=== PATIENT | male | born 1940 | race Caucasian/White ===

== ENCOUNTER → 2017-02-02 | Outpatient (CLI) | payer MEDICARE, OTHER ==
--- NOTE | 2017-02-02 16:00 | KCIC ---
Examination: MRI of the left forefoot without contrast. HISTORY History of foot pain. COMPARISON None available. TECHNIQUE Multiplanar, multisequence MR imaging of the left forefoot was performed without contrast Findings : The alignment of the tarsometatarsal joints grossly appears unremarkable. There are erosive changes identified in the dorsal aspect of the 1st metatarsal and in the proximal portion of the first proximal phalanx at the metatarsophalangeal joint with surrounding intermediate T1 signal likely gout with tophus formation. There is some synovial prominence or tophi identified about 2nd and 3rd metatarsophalangeal joints.There is questionable minimal subluxed appearance of the proximal phalanx of the 2nd and 3rd toes in relation to the heads of the metatarsals. There is a marginal erosion identified in the medial aspect of the distal talus with focal intermediate T1 signal measuring 1.6 centimeters dorsal to the medial talus likely gouty erosion with tophus. The distal attachment of the peroneus longus tendon grossly appears intact. The visualized Lisfranc ligament grossly appears intact. Mild degenerative changes with subchondral cysts identified at the base of the 3rd metatarsal. IMPRESSION 1. 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 There is suspected tophus formation about the 2nd and 3rd MTP joints with possible minimal medial subluxed appearance of the proximal phalanx of the 2nd and 3rd toes in relation to the metatarsal heads. Electronically signed by: Carlos Callejas (Feb 02, 2017 15:59:03)
== END | disposition home or self-care (01) ==
LOC: KCIC MRI 14:18
PROVIDERS: ATTEND Family Medicine
DX: M79.672 Pain in left foot (principal)
CPT/HCPCS: 73718

== ENCOUNTER → 2017-04-21 | Day surgery (SDC) | payer MEDICARE, OTHER ==
[~2017-04-21] MED LIST: ATOR20TA58 PO; CITA20TA5 PO; IV RINGERS,LACTATED 1000ML 1,000 ML IV SCH; LANS15CA66 PO; PROPOFOL 40 ML IV ONE; TRAZ50TA15 PO
[2017-04-21 09:26] VITALS: BP 119/64
--- NOTE | 2017-04-21 10:33 | HP ---
ADMIT DATE: 04/21/2017 HISTORY OF PRESENT ILLNESS: This is a 77-year-old male with past medical history significant for diverticulosis, hemorrhoids, hyperlipidemia, history of colonic polyps and reflux is seen for interval colonoscopy. Bowel habits have been regular without diarrhea or constipation. Family history is unrevealing for colon polyps or colon cancer. Weight and appetite are good. He is without additional complaints. PAST MEDICAL HISTORY: Hyperlipidemia, history of colonic polyps, gastroesophageal reflux disease. ALLERGIES: None. MEDICATIONS: Include atorvastatin, citalopram, Prevacid and trazodone. FAMILY AND SOCIAL HISTORY: Nonsmoker, nondrinker. PAST SURGICAL HISTORY: Noncontributory. REVIEW OF SYSTEMS: Per records. PHYSICAL EXAMINATION: GENERAL: Reveals a well-nourished, well-developed male. VITAL SIGNS: Temperature is 98.1, pulse 74, respiratory rate is 16. HEENT: Normocephalic, atraumatic. Pupils and extraocular muscles not tested. Sclerae anicteric. NECK: Supple. LUNGS: Clear. CARDIOVASCULAR: Reveals an S1, S2 without S3, S4 or appreciable murmur. ABDOMEN: Soft abdomen, normal bowel sounds, without appreciable hepatosplenomegaly. EXTREMITIES: Reveals no cyanosis, clubbing or edema. IMPRESSION: History of colonic polyps. Surveillance exam is recommended at this time. Risks and benefits have been previously discussed with the patient including risk of hemorrhage and perforation. He is willing to proceed at this time. BOBBY LANDERS MD DR: NAVDEEP/cecelia JOB#: [id number] / [id number]
== END | disposition home or self-care (01) ==
LOC: SURG 07:13
PROVIDERS: ATTEND Internal Medicine Gastroenterology
DX: Z09 Encounter for follow-up examination after completed treatment for conditions other than malignant neoplasm (principal); Z86.010 Personal history of colon polyps; K64.0 First degree hemorrhoids; K57.30 Diverticulosis of large intestine without perforation or abscess without bleeding; E78.00 Pure hypercholesterolemia, unspecified; F32.9 Major depressive disorder, single episode, unspecified
CPT/HCPCS: 45378; J2704

== ENCOUNTER → 2020-05-18 | Outpatient (CLI) | payer MEDICARE, OTHER ==
[2017-04-21 09:26] VITALS: BP 119/64
[~2020-05-18] MED LIST changes: -CITA20TA5 PO; +CITA20TA6 PO; +INDO25CA21 PO; -IV RINGERS,LACTATED 1000ML 1,000 ML IV SCH; -LANS15CA66 PO; +LANS15CA78 PO; +METF500T16 PO; -PROPOFOL 40 ML IV ONE; +TRAZ-118 PO; -TRAZ50TA15 PO
[2020-05-18 09:23] LABS: BASO # 0.1 x10^3/uL (0.0-0.2); BASO % 1 % (0-3); EOS # 0.2 x10^3/uL (0.0-0.7); EOS % 4 % (0-3); HEMATOCRIT 43.4 % (39.0-53.0); HEMOGLOBIN 14.8 g/dL (13.0-17.5); LYMPH # 2.1 x10^3/uL (1.0-4.8); LYMPH % 37 % (24-48); MEAN CORPUSCULAR HEMOGLOBIN 33 pg (25-35); MEAN CORPUSCULAR HGB CONC 34 g/dL (31-37); MEAN CORPUSCULAR VOLUME 95 fL (79-100); MONO # 0.6 x10^3/uL (0.0-1.1); MONO % 10 % (0-9); NEUT # 2.8 x10^3/uL (1.8-7.7); NEUT % 49 % (31-73); PLATELET COUNT 222 x10^3/uL (140-400); RED BLOOD COUNT 4.56 x10^6/uL (4.30-5.70); RED CELL DISTRIBUTION WIDTH 13.3 % (11.5-14.5); WHITE BLOOD COUNT 5.8 x10^3/uL (4.0-11.0)
[2020-05-18 09:34] LABS: ALBUMIN 3.9 g/dL (3.4-5.0); C-REACTIVE PROTEIN 1.9 mg/L (0-3.3); CALCIUM 9.3 mg/dL (8.5-10.1); GFR 72.3; POTASSIUM 4.1 mmol/L (3.5-5.1)
[2020-05-18 09:41] LABS: PROTHROMBIN TIME PATIENT 12.3 SEC (11.7-14.0)
--- NOTE | 2020-05-18 13:03 | RAD ---
CHEST PA LATERAL History: Reason: joint prehab class-hx hypertension-preop eval / Comparison: None. Findings: There is mildly tortuous thoracic aorta. Cardiac size is normal. Pulmonary vasculature is normal. The lungs are clear. No pleural effusion or pneumothorax is seen. There is no acute bone abnormality. There is degenerative endplate spurring of the thoracic spine. IMPRESSION: No acute cardiopulmonary process. Electronically signed by: Arnel Sewell MD (05/18/2020 1:00 PM) [id number]
--- NOTE | 2020-05-18 14:49 | EKG ---
[facility] [address] [place] [address] Test Date: 2020-05-18 Test Time: 11:25:29 Pat Name: PARIS TONY Department: Room: Gender: M Bingo Checker: [facility] : 1940 Requested By: ALETHEA RUBIO Order Number: [id number] Reading MD: Nestor Redding MD Measurements Intervals Jamison Rate: 56 P: 39 MT: 162 QRS: -5 QRSD: 86 T: 31 QT: 446 QTc: 433 Interpretive Statements SINUS RHYTHM Electronically Signed On 05-21-2020 16:36:55 CDT by Nestor Redding MD
[2020-05-19 01:08] LABS: HEMOGLOBIN A1C 5.7 % (4.8-5.6)
== END | disposition home or self-care (01) ==
LOC: SURGPAT 11:12
PROVIDERS: ATTEND Orthopaedic Surgery
DX: Z01.818 Encounter for other preprocedural examination (principal); M17.12 Unilateral primary osteoarthritis, left knee; I10 Essential (primary) hypertension
CPT/HCPCS: 36415; 71046; 80048; 82040; 82306; 83036; 85025; 85610; 85730; 86140; 87641; 93005

== ENCOUNTER → 2020-05-27 | Outpatient (CLI) | payer MEDICARE, OTHER ==
[2017-04-21 09:26] VITALS: BP 119/64
== END | disposition home or self-care (01) ==
LOC: LAB 13:12
PROVIDERS: ATTEND Orthopaedic Surgery
DX: Z01.818 Encounter for other preprocedural examination (principal); Z11.59 Encounter for screening for other viral diseases; M17.12 Unilateral primary osteoarthritis, left knee; Z91.09 Other allergy status, other than to drugs and biological substances
CPT/HCPCS: U0003-CS

== ENCOUNTER 2020-06-02 05:46 | Inpatient (IN) | payer MEDICARE, OTHER ==
[~2020-06-02] VITALS: Ht 180.3 cm; Wt 80.7 kg
[2020-06-02] VITALS (9 sets, daily range): BP systolic 114–139; BP diastolic 56–66
[2020-06-02] MEDS ORDERED: TRANEXAMIC ACID 1,000 MG in IV NORMAL SALINE 50ML 50 ML INJ ONE ×2 (06:00→08:00)
[2020-06-02] MEDS ORDERED: CELECOXIB 100 MG CAPSULE. PO PRN (06:00)
[2020-06-02] MEDS ORDERED: MORPHINE SULFATE 5 MG, KETOROLAC 30MG VIAL 30 MG, ROPIVacaine 0.5% PF 60 ML, EPINEPHrin... INT ART ONE (06:00)
[2020-06-02] MEDS ORDERED: PROPOFOL 10 MG/ML (20ML) VIAL. IV ONE (06:19)
[2020-06-02] MEDS ORDERED: LIDOCAINE 2% PF 5 ML VIAL. ONE (06:19)
[2020-06-02] MEDS ORDERED: ONDANSETRON PF 4 MG/2 ML VIAL. ONE (06:19)
[2020-06-02] MEDS ORDERED: DEXAMETHASONE SOD PHOS 4 MG/ML VIAL ONE (06:19)
[2020-06-02] MEDS ORDERED: VANCOMYCIN 1 GM VIAL. ONE ×2 (06:37)
[2020-06-02] MEDS ORDERED: TOBRAMYCIN POWDER 1.2 GM VIAL. ONE (06:37)
[2020-06-02] MEDS ORDERED: fentaNYL PF VIAL 100 MCG/2 ML VIAL ONE ×3 (06:50→10:35)
[2020-06-02] MEDS ORDERED: ACETAMINOPHEN 500 MG TABLET PO ONE ×2 (06:58→07:15)
[2020-06-02] MEDS ORDERED: PROCHLORPERAZINE 10 MG/2 ML VIAL. IV PRN ×2 (07:00→10:45)
[2020-06-02] MEDS ORDERED: IV RINGERS,LACTATED 1000ML 1,000 ML IV SCH ×2 (07:00→10:43)
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
[2020-06-02] MEDS ORDERED: GLYCOPYRROLATE 1 MG/5 ML VIAL. ONE (08:16)
[2020-06-02] MEDS ORDERED: PHENYLEPHRINE in 0.9% NACL PF 1 MG/10 ML SYRINGE. IV ONE (10:17)
--- NOTE | 2020-06-02 10:34 | PDOC4 ---
Operative Note Operative Note Date of Procedure: June 02, 2020 Pre-Op Diagnosis: Unilateral primary osteoarthritis, left knee. M17.12 Post-Op Diagnosis: same Procedure: left total knee arthroplasty with patella resurfacing, robotic assisted, CPT 49443 Surgeon: Alethea Avilez MD Commercial Marketing Specialist: PEDRO Jones Anesthesia: General EBL: 200 mL Specimens Obtained: left knee bone and soft tissue Complications: none Drains: Hemovac plus pain catheter Tourniquet time: 80 Minutes Tourniquet Pressure: 300 mm Hg Indications for Procedure: Knee arthritis pain, affecting quality of life, unrelieved by nonoperative management Findings: Severe osteoarthritis with bone on bone contact in all three compartments, some chondrocalcinosis, eburnated bone and bone loss of the medial tibia, severe flexion contracture preoperatively and significant varus alignment preoperatively Implants: Hernandez & Nephew Journey II Total Knee System, Size 7 left bicruciate stabilized Journey II BCS cobalt chrome femoral component, size 6 left Journey nonporous tibial baseplate, size 5-6 10 mm left Journey II BCS constrained articular insert, 35 mm oval Jess II resurfacing patellar component Procedure in Detail: The patient was identified in the preoperative holding area, and the correct left lower extremity was marked by me. The patient was taken to the operating room where the patient was anesthetized by the Department of Anesthesia. Preoperative antibiotics were given intravenously. Tranexamic acid 1 g was given intravenously for intraoperative hemostasis. A "time-out" procedure was p erformed. The patient was positioned supine on the operative table with a tourniquet on the upper left thigh. A left hip bump and heel bump were attached to the operating table for later intraoperative positioning. The left lower limb was thoroughly scrubbed, then sterile Chloraprep solution was applied, and the limb was draped in sterile fashion. The operating team wore exhaust ventilated hoods with [employer] Personal Protection Toga Zippered Peel-Away protection system. An impervious stockinet and an adhesive drape were used such that the skin was entirely covered. The limb was exsanguinated with an Esmarch bandage, and the tourniquet was inflated. A midline skin incision was made with a scalpel using the patella and tibial tubercle as landmarks. Electrocautery was used for hemostasis. My assistant family teacher used rake retractors and a laparotomy sponge. A medial parapatellar arthrotomy incision was used with extension into the distal quadriceps tendon. The patella was retracted laterally and Hohmann retractors were now used by my assistant family teacher. Excess synovium, the menisci, and the cruciate ligaments were resected sharply. A periarticular multimodal ropivacaine anesthetic injection was used in the suprapatellar pouch and distal quadriceps muscle. The patella was everted and exposed. The patella thickness was measured with a caliper, and then cut freehand with a saw, using caliper measurements to assess the resection. The lateral retinaculum was partially released from the lateral patella using electrocautery. Rongeurs were used to make sure there were no remaining exposed patellar osteophytes medially or laterally. The patella was sized, and then drilled for an oval three-peg patella component. The tibial tracker array for the NAVIO system was applied to the tibial crest four finger breadths below the tibial tubercle, using percutaneous incisions and bicortical pins. The femoral tracker array was applied outside of the original incision using two separate stab incisions using bicortical pins. Checkpoint verification pins were applied to the femur and tibia. Using the point probe, the medial and lateral malleoli were localized and the locations were stored. The center of the tibia was noted at the anterior cruciate ligament insertion and stored. The center of the femur was marked at the intersection of Whitesidess line with the transepicondylar axis. The hip center calculation was performed with range of motion of the hip. The femur neutral position was identified, and simulated weightbearing was performed with axial compression on the foot. Range of motion without stress was performed and the data collected. Range of motion with valgus stress, and range of motion with varus stress data collection was also performed. Rotational references include the Whitesidess line, and the trans-epicondylar axis. The femoral articular surface was now mapped in 3 dimensions using the point probe and digital data collected. The tibial condyle articular surfaces and cortical edges were mapped in 3 dimensions using the point probe including the medial and lateral tibial plateau. Implant planning was now performed on-screen with manipulation of the implant sizes, cut thicknesses and gaps, component rotation, component flexion/extension and component varus/valgus until satisfactory ligament balance, alignment and stability of the knee was expected throughout the range of motion. My assistant family teacher held a Hohmann retractor, a medial Z-retractor, and an [facility] retractor to protect the medial and lateral collateral ligaments, the patellar tendon, the skin and the other soft tissues. The point probe was used to confirm the location of the checkpoint verification pins. The distal femoral surface was now prepared using the Anspach finesse with footpedal, and the NAVIO handpiece for bone removal to the previously planned distal femoral resection. The crosshairs at the pin locations were marked by using a mallet and the point probe for definitive location. A 5-in-1 Journey II cutting guide was then applied and the position was checked with the virtual deo wing from the NAVIO to ensure proper placement as the pins were applied. The posterior, anterior, and all chamfer cuts were made with the oscillating saw. Excess bone was removed with an osteotome and rongeurs. The tibial cutting guide was applied, positioned using the NAVIO virtual deo wing, and secured to the upper tibia using three pins at the previously planned location. The virtual doe wing was used to confirm the resection depth, slope and coronal alignment. The upper tibia was cut made with an oscillating saw. My assistant family teacher held Hohmann retractors and a posterior cruciate ligament retractor to protect the medial and lateral collateral ligaments, the patellar tendon, the skin, the peroneal nerve and the other soft tissues. The upper tibia was sized with a trial baseplate. The posterior compartment was cleared of osteophytes and loose bodies. The periarticular anesthetic injection was used in the posterior compartment. The box cut for a posterior stabilized component was made. A preliminary reduction was performed with a trial femur, trial tibial baseplate and trial polyethylene. The NAVIO system was used to confirm range of motion, and postoperative stressed gap assessment. A medial release was required, using a 10 blade scalpel, and a Cortez elevator to elevate the medial structures from the upper medial tibia. The stability was assessed using different thicknesses of tibial articular surface to find satisfactory stability and good range of motion. The rotation of the tibial component was marked on the upper tibia. Final trial reduction was now performed verifying patella tracking and tibiofemoral stability and alignment. The bone pins and tracker arrays were removed, and the checkpoint verification pins were removed. The tibia preparation was completed with a drill, saw, and fin punch at the previously noted rotation. The final implants were verified and opened. Outer gloves were changed by the operating team. Betadine lavage was used. The bone cuts were irrigated with saline using the Banks InterPulse device and then dried with suction and laparotomy sponges. Two packages of Hernandez + Nephew Rally HV bone cement were mixed in powdered form with Vancomycin 1gm and Tobramycin 1.2 gm, and then vacuum-mixed with the monome r, and placed into a cement gun. The cut surfaces of the bone were thoroughly dried with suction and with laparotomy sponges for cement interdigitation. The final components were cemented into place. The knee was kept at full extension while the cement hardened, and excess cement was removed. Tranexamic acid 1 g was redosed intravenously for additional intraoperative hemostasis. The tourniquet was released, and electrocautery was used for hemostasis. A final periarticular anesthetic injection was used for pain relief. The bone pin sites on the tibial crest were closed with #3-0 Nylon sutures. A final check of [id number] and stability was made, and the polyethylene implant final size was chosen. The polyethylene implant was secured to the tibial baseplate, and the knee was reduced a final time and range of motion and stability was confirmed. Thorough irrigation was used. A pain catheter, and a 15 Fr Hemovac were inserted. Topical Vancomycin 1 gm was used during the closure. The arthrotomy was closed with interrupted [id number] #1 Vicryl suture. The arthrotomy incision was then run with #1 STRATAFIX Symmetric PDS Plus Knotless suture. The subcutaneous tissues were approximated initially with #2-0 Vicryl inverted interrupted sutures by my assistant family teacher. Next the subcuticular layer was approximated in a running fashion with #3-0 STRATAFIX suture by my assistant family teacher. The skin incision was then covered and reinforced by my assistant family teacher with Acticoat, followed by a CHIVO single use negative pressure wound therapy dressing Soft roll and an Lv wrap were applied. Needle and sponge counts were correct. There were no apparent complications. The patient returned to the recovery room in stable condition. ALETHEA AVILEZ MD Jun 02, 2020 10:33
[2020-06-02] MEDS: IV NORMAL SALINE 1000ML BAG 1,000 ML IV SCH (10:35)
[2020-06-02] MEDS ORDERED: MORPHINE SULFATE 2 MG/ML VIAL. IV PRN (10:45)
[2020-06-02] MEDS ORDERED: PROCHLORPERAZINE 5 MG TABLET. PO PRN (10:45)
[2020-06-02] MEDS ORDERED: MORPHINE SULFATE 4 MG/ML VIAL. IVP PRN (10:45)
[2020-06-02] MEDS ORDERED: 0.9 % SODIUM CHLORIDE 10 ML DISP.SYRIN. IV PRN (10:45)
[2020-06-02] MEDS ORDERED: METOCLOPRAMIDE HCL 10 MG/2 ML VIAL. IVP PRN (10:45)
[2020-06-02] MEDS ORDERED: diphenhydrAMINE 50 MG/ML VIAL IVP PRN (10:45)
[2020-06-02] MEDS ORDERED: fentaNYL PF VIAL 100 MCG/2 ML VIAL IVP PRN (10:45)
[2020-06-02] MEDS ORDERED: ZOLPIDEM 5 MG TABLET. PO PRN (10:45)
[2020-06-02] MEDS ORDERED: CALCIUM CARBONATE 500 MG TAB.CHEW PO PRN (10:45)
[2020-06-02] MEDS ORDERED: HYDROmorphone 2 MG/ML VIAL IV PRN (10:45)
[2020-06-02] MEDS ORDERED: fentaNYL PF VIAL 100 MCG/2 ML VIAL IV PRN ×2 (10:45)
[2020-06-02] MEDS ORDERED: DEXTROSE 50% 25 GM / 50ML DISP.SYRIN. IV PRN (10:45)
[2020-06-02] MEDS ORDERED: oxyCODONE/APAP 5/325 1 TAB TABLET PO PRN (11:00)
--- NOTE | 2020-06-02 11:39 | RAD ---
PROCEDURE: KNEE LEFT 2V STUDY DATE: 06/02/2020 CLINICAL INDICATION / HISTORY: Reason: POST OP / Spl. Instructions: / History: . TECHNIQUE: Crosstable lateral and AP views of the left knee were obtained COMPARISON: 03/26/2020 bilateral knee x-rays FINDINGS: Interval left total knee arthroplasty with improvement in alignment. Surgical drain present. Soft tissues otherwise unremarkable. IMPRESSION: Left total knee arthroplasty with expected postoperative changes. Electronically signed by: Malia Lopez MD (06/02/2020 11:36 AM) [id number]
[2020-06-02] MEDS: ONDANSETRON PF 4 MG/2 ML VIAL. IVP SCH ×2 (12:00→17:37)
[2020-06-02] MEDS: INSULIN LISPRO 300 UNITS/3 ML VIAL. SQ SCH ×2 (12:00→16:31)
[2020-06-02] MEDS: ONDANSETRON ODT 4 MG TAB.RAPDIS. PO SCH ×2 (12:00→17:37)
--- NOTE | 2020-06-02 12:15 | NUR ---
Admitted from PACU per bed, alert/oriented, WASHOE, states pain level 0/10, elevated on pillow with ice pack in place, Hemovac, IAC (capped) in place, BRIDGETTE to [facility], [facility] [place], oriented to surroundings, no family member at bedside, call light in reach, see admission assessment
[2020-06-02] MEDS: MULTIVITAMIN with MINERAL TABLET. PO SCH (13:17)
[2020-06-02] MEDS: metFORMIN 500 MG TABLET PO SCH (13:17)
[2020-06-02] MEDS: KETOROLAC 30MG VIAL 30 MG, BUPIVACAINE MPF 0.25% 20 ML, EPINEPHrine 0.5 MG in TOTAL VOL... INT ART SCH (17:34)
--- NOTE | 2020-06-02 18:37 | NUR ---
Unable to infused IAC med. Addendum: 06/02/20 at 1839 by NAKUL GABRIEL RN IAC did work and med was completely infused.
[2020-06-02] MEDS: CITALOPRAM 20 MG TABLET. PO SCH (20:46)
[2020-06-02] MEDS: ASPIRIN ENTERIC COATED 325 MG TABLET.DR. PO SCH (20:46)
--- NOTE | 2020-06-03 00:15 | NUR ---
Patient has sat up in chair this shift watching television. Patient continues to deny pain. Rates pain 0/10. Patient requesting to go to bed and assisted with HS routines. Patient attempting to leave walker at door and walk to commode. RN informed Patient of need to use walker with ambulating at all times. Patient assisted in transfer to commode with walker for safety. Patient got angry with RN stating "Just shut the door!" RN informed him of need to make sure he safely got to commode and instructed him to use call light when done for RN to assist with transfers. Patient got himself up post toileting and transferred to sink without calling for assistance. RN reinforced need for Pateitn to call for assistance.
[2020-06-03 02:42] VITALS: BP 143/65
[2020-06-03 05:07] LABS: HEMATOCRIT 33.6 % (39.0-53.0); HEMOGLOBIN 11.6 g/dL (13.0-17.5)
[2020-06-03] MEDS ORDERED: MAGNESIUM HYDROXIDE 2,400 MG/30 ML ORAL.SUSP. PO PRN (06:00)
[2020-06-03 06:25] VITALS: BP 138/61
[2020-06-03] MEDS: ONDANSETRON ODT 4 MG TAB.RAPDIS. PO SCH ×2 (06:28)
[2020-06-03] MEDS: ONDANSETRON PF 4 MG/2 ML VIAL. IVP SCH ×2 (06:28)
[2020-06-03] MEDS: KETOROLAC 30MG VIAL 30 MG, BUPIVACAINE MPF 0.25% 20 ML, EPINEPHrine 0.5 MG in TOTAL VOL... INT ART SCH (06:29)
[2020-06-03] MEDS: INSULIN LISPRO 300 UNITS/3 ML VIAL. SQ SCH ×3 (07:45→17:00)
[2020-06-03] MEDS: CITALOPRAM 20 MG TABLET. PO SCH ×2 (08:10→19:52)
[2020-06-03] MEDS: metFORMIN 500 MG TABLET PO SCH (08:10)
[2020-06-03] MEDS: SENNOSIDES/DOCUSATE 8.6/50MG TABLET. PO SCH (08:10)
[2020-06-03] MEDS: ASPIRIN ENTERIC COATED 325 MG TABLET.DR. PO SCH ×2 (08:11→19:52)
[2020-06-03] MEDS: oxyCODONE/APAP 5/325 1 TAB TABLET PO PRN ×3 (08:12→21:56)
[2020-06-03] MEDS: CELECOXIB 100 MG CAPSULE. PO SCH (08:13)
[2020-06-03] MEDS: MULTIVITAMIN with MINERAL TABLET. PO SCH (08:13)
--- NOTE | 2020-06-03 08:30 | NUR ---
Ambulated to bathroom with unsteady gait. Pt to quick and will leave walker aside. Needs to be reminded to use walker at all times. Verbalized understanding. Cont. monitor closely.
[2020-06-03] MEDS: IV NORMAL SALINE 1000ML BAG 1,000 ML IV SCH (10:35)
[2020-06-03] MEDS ORDERED: ONDANSETRON ODT 4 MG TAB.RAPDIS. PO PRN (12:00)
[2020-06-03] MEDS ORDERED: ONDANSETRON PF 4 MG/2 ML VIAL. IVP PRN (12:00)
--- NOTE | 2020-06-03 15:06 | PDOC ---
PROGRESS NOTES Subjective Subjective Doing very well, but not confident with walker yet to go home today. Planning home tomorrow with outpatient therapy. Objective Vital Signs Vital Signs Date Time Temp Pulse Resp B/P (MAP) Pulse Ox O2 Delivery O2 Flow Rate FiO2 06/03/20 12:36 Room Air 06/03/20 06:25 98.7 78 18 138/61 (86) 96 98.7 06/02/20 11:15 10 Physical Exam CHIVO intact and dry. Pain catheter and Hemovac have been removed. Calf soft and NT. Good AROM of foot and toes. Intact sensation distally. No sign of compartment syndrome or DVT. No blisters. Labs Laboratory Tests Test 06/02/20 07:04 06/02/20 11:02 06/02/20 21:46 06/03/20 04:33 Glucose (Fingerstick) 78 mg/dL (70-99) 183 mg/dL (70-99) 173 mg/dL (70-99) Hemoglobin 11.6 g/dL (13.0-17.5) Hematocrit 33.6 % (39.0-53.0) Mean Corpuscular Hemoglobin Concent 34 g/dL (31-37) Test 06/03/20 06:36 06/03/20 11:46 Glucose (Fingerstick) 104 mg/dL (70-99) 109 mg/dL (70-99) Laboratory Tests Test 06/02/20 21:46 06/03/20 04:33 06/03/20 06:36 06/03/20 11:46 Glucose (Fingerstick) 173 mg/dL (70-99) 104 mg/dL (70-99) 109 mg/dL (70-99) Hemoglobin 11.6 g/dL (13.0-17.5) Hematocrit 33.6 % (39.0-53.0) Mean Corpuscular Hemoglobin Concent 34 g/dL (31-37) Imaging Report reviewed, images independently reviewed. Satisfactory total knee arthroplasty with patellar resurfacing, without apparent complications. Postsurgical changes indicate robotic assistance. [facility] [address] [place], [place] [id number] IMAGING REPORT Signed PATIENT: PARIS TONY ACCOUNT: [id number] : 1940 LOCATION: [address] [place] [address] AGE: 80 SEX: M EXAM STATUS: ADM IN ORD. PHYSICIAN: ALETHEA RUBIO MD REASON: POST OP PROCEDURE: KNEE LEFT 2V PROCEDURE: KNEE LEFT 2V STUDY DATE: 06/02/2020 CLINICAL INDICATION / HISTORY: Reason: POST OP / Spl. Instructions: / History: . TECHNIQUE: Crosstable lateral and AP views of the left knee were obtained COMPARISON: 03/26/2020 bilateral knee x-rays FINDINGS: Interval left total knee arthroplasty with improvement in alignment. Surgical drain present. Soft tissues otherwise unremarkable. IMPRESSION: Left total knee arthroplasty with expected postoperative changes. Electronically signed by: Melba Lopez MD (06/02/2020 11:36 AM) [id number] DICTATED and SIGNED BY: MELBA LOPEZ MD DATE: 06/02/20 1136 Assessment Assessment POD#1 after TKA. Blood sugars were pretty high yesterday, but seem better today. Definitely will continue sliding scale and hope these don't go back up. Not safe with walker today but looks very good for home tomorrow with outpatient therapy. Plan Plan of Care Continue DVT prophylaxis. Physical therapy. Sliding scale insulin for his diabetes. Home tomorrow. Justicifation of Admission Dx: Justifications for Admission: Justification of Admission Dx: N/A ALETHEA RUBIO MD Jun 03, 2020 15:06
[2020-06-03] MEDS ORDERED: BISACODYL 10 MG SUPP.RECT. PR PRN (16:00)
[2020-06-03 18:08] VITALS: BP 139/67
--- NOTE | 2020-06-03 19:52 | NUR ---
Patient awake assessment completed. Patient requesting HS medication at this time. 2100 medications given.
[2020-06-03] MEDS ORDERED: ATORVASTATIN CALCIUM 20 MG TABLET PO SCH (21:00)
[2020-06-04 04:38] LABS: HEMATOCRIT 34.8 % (39.0-53.0); HEMOGLOBIN 12.3 g/dL (13.0-17.5)
[2020-06-04 06:00] VITALS: BP 122/68
[2020-06-04] MEDS: INSULIN LISPRO 300 UNITS/3 ML VIAL. SQ SCH ×2 (08:00→11:51)
[2020-06-04] MEDS: CELECOXIB 100 MG CAPSULE. PO SCH (08:43)
[2020-06-04] MEDS: ASPIRIN ENTERIC COATED 325 MG TABLET.DR. PO SCH (08:43)
[2020-06-04] MEDS: CITALOPRAM 20 MG TABLET. PO SCH (08:43)
[2020-06-04] MEDS: metFORMIN 500 MG TABLET PO SCH (08:43)
[2020-06-04] MEDS: MULTIVITAMIN with MINERAL TABLET. PO SCH (08:43)
[2020-06-04] MEDS: SENNOSIDES/DOCUSATE 8.6/50MG TABLET. PO SCH (08:43)
--- NOTE | 2020-06-04 10:00 | NUR ---
reviewed orally discharge instructions regarding restrictions to activities of living care, incisional care and medications. verbalized understanding of these instructions. supplies given
[2020-06-04] MEDS: oxyCODONE/APAP 5/325 1 TAB TABLET PO PRN ×2 (10:06→14:14)
[2020-06-04] MEDS: IV NORMAL SALINE 1000ML BAG 1,000 ML IV SCH (10:35)
--- NOTE | 2020-06-04 12:54 | PDOC ---
PROGRESS NOTES Subjective Subjective Doing well. Planning for discharge today. Objective Vital Signs Vital Signs Date Time Temp Pulse Resp B/P (MAP) Pulse Ox O2 Delivery O2 Flow Rate FiO2 06/04/20 11:00 Room Air 06/04/20 10:06 20 06/04/20 06:00 99.2 86 122/68 (86) 94 99.2 06/02/20 11:15 10 Physical Exam CHIVO dressing dry. Incision benign. Calves soft NT. Still some bloody drainage from Hemovac site. Labs Laboratory Tests Test 06/02/20 21:46 06/03/20 04:33 06/03/20 06:36 06/03/20 11:46 Glucose (Fingerstick) 173 mg/dL (70-99) 104 mg/dL (70-99) 109 mg/dL (70-99) Hemoglobin 11.6 g/dL (13.0-17.5) Hematocrit 33.6 % (39.0-53.0) Mean Corpuscular Hemoglobin Concent 34 g/dL (31-37) Test 06/03/20 16:48 06/03/20 19:59 06/04/20 02:50 Glucose (Fingerstick) 90 mg/dL (70-99) 115 mg/dL (70-99) Hemoglobin 12.3 g/dL (13.0-17.5) Hematocrit 34.8 % (39.0-53.0) Mean Corpuscular Hemoglobin Concent 35 g/dL (31-37) Laboratory Tests Test 06/03/20 16:48 06/03/20 19:59 06/04/20 02:50 Glucose (Fingerstick) 90 mg/dL (70-99) 115 mg/dL (70-99) Hemoglobin 12.3 g/dL (13.0-17.5) Hematocrit 34.8 % (39.0-53.0) Mean Corpuscular Hemoglobin Concent 35 g/dL (31-37) Assessment Assessment POD #2 after TKA Plan Plan of Chcf today. Oral pain meds. Aspirin BID for DVT prophylaxis. Follow up with my office 06/11 in [place] office at 2:00 p.m. Instructed on CHIVO trimming on Monday. Outpatient PT. Justicifation of Admission Dx: Justifications for Admission: Justification of Admission Dx: N/A ALETHEA RUBIO MD 9, 2020 12:54
[2020-06-04] MEDS ORDERED: OXYC1TAB15 PO (13:02)
[2020-06-04] MEDS ORDERED: CELE100C PO (13:02)
[2020-06-04] MEDS ORDERED: ASPI325T11 PO (13:02)
--- NOTE | 2020-06-04 13:03 | PDOC3 ---
Discharge Summary Visit Information Date of Admission: Jun 02, 2020 Date of Discharge: Jun 04, 2020 Final Diagnosis osteoarthritis left knee aftercare after total knee arthroplasty Brief Hospital Course Allergies Allergies Coded Allergies Type Severity Reaction Last Updated Verified No Known Drug Allergies 06/02/20 No Vital Signs Vital Signs Date Time Temp Pulse Resp B/P (MAP) Pulse Ox O2 Delivery O2 Flow Rate FiO2 06/04/20 11:00 Room Air 06/04/20 10:06 20 06/04/20 06:00 99.2 86 122/68 (86) 94 99.2 Lab Results Laboratory Tests Test 06/02/20 21:46 06/03/20 04:33 06/03/20 06:36 06/03/20 11:46 Glucose (Fingerstick) 173 mg/dL (70-99) 104 mg/dL (70-99) 109 mg/dL (70-99) Hemoglobin 11.6 g/dL (13.0-17.5) Hematocrit 33.6 % (39.0-53.0) Mean Corpuscular Hemoglobin Concent 34 g/dL (31-37) Test 06/03/20 16:48 06/03/20 19:59 06/04/20 02:50 Glucose (Fingerstick) 90 mg/dL (70-99) 115 mg/dL (70-99) Hemoglobin 12.3 g/dL (13.0-17.5) Hematocrit 34.8 % (39.0-53.0) Mean Corpuscular Hemoglobin Concent 35 g/dL (31-37) Laboratory Tests Test 06/03/20 16:48 06/03/20 19:59 06/04/20 02:50 Glucose (Fingerstick) 90 mg/dL (70-99) 115 mg/dL (70-99) Hemoglobin 12.3 g/dL (13.0-17.5) Hematocrit 34.8 % (39.0-53.0) Mean Corpuscular Hemoglobin Concent 35 g/dL (31-37) Brief Hospital Course 80 year old who presented with knee osteoarthritis, for elective total knee arthroplasty. The patient underwent total knee arthroplasty under general anesthesia the day of admission. Perioperative antibiotics and DVT prophylaxis were used. Postoperatively physical therapy and case management were consulted. The patient progressed and is stable for discharge. Discharge Information Condition at Discharge: Stable Follow Up: Weeks Disposition/Orders: D/C to Home Scheduled Atorvastatin Calcium (Atorvastatin Calcium), 1 TAB PO DAILY, (Reported) Citalopram Hydrobromide (Citalopram Hbr), 1 TAB PO BID, (Reported) Metformin Hcl (Metformin Hcl), 500 MG PO DAILY, (Reported) Scheduled PRN Indomethacin (Indomethacin), 25 MG PO PRN DAILY PRN for GOUT, (Reported) Patient Instructions Patient Instructions Continue to weight bearing as tolerated with walker. Keep CHIVO dressing intact and dry. Cut off CHIVO "tail" and throw away battery pack on the 7th day after surgery. Tape down CHIVO tail Leave CHIVO dressing intact otherwise. Follow up with Dr. Avilez's office 06/11. Call for appointment unless already scheduled. Continue enteric coated aspirin 325 mg by mouth twice a day for 30 days to prevent blood clots. Justicifation of Admission Dx: Justifications for Admission: Justification of Admission Dx: N/A ALETHEA AVILEZ MD Jun 04, 2020 13:03
--- NOTE | 2020-06-04 13:11 | NUR ---
Gene is doing fair. he is more painful with ambulation. continues to have drainage from the hemovac site. plans to go home with outpatient therapy
[2020-06-04 14:11] VITALS: BP 124/62
--- NOTE | 2020-06-04 14:29 | NUR ---
reviewed written discharge instructions with Gene. awaiting . verbalized understanding of follow up with Dr. Avilez and physical therapy. script sent to pharmacy. reinstructed on Hemovac dressing site change. will review with when she arrives.
--- NOTE | 2020-06-04 15:08 | PATHOLOGY ---
[facility] Accession Number: [id number] . 01 Material submitted: . knee - LEFT KNEE BONE AND TISSUE. Modifiers: left . 01 Clinical history: . OA . 02 Diagnosis: Segments of bone and soft tissue, robotic assisted left total knee arthroplasty: - Advanced degenerative arthritis. - Mild nonspecific chronic synovitis. (JPM:pit 06/04/2020) QTP 06/04/2020 1322 Local . 02 Electronically signed: . Obinna Mac MD, Pathologist NPI- [id number] . 01 Gross description: . The specimen is received in formalin, labeled "Kittermfrancisca, Valor, left knee bone and tissue" and consists of multiple segments of bone including the tibial plateau with attached romero-zacarias soft tissue measuring 17.6 x 12.3 x 2.0 cm. The meniscus is absent. The articular surfaces are roughened and granular pink-zacarias with focal eburnation and focal white chalky material. Welding Machine Operator/Tender sections are submitted in A1-A2 with A2 following decalcification. (SDY; 06/02/2020) SYU/SYU 06/02/2020 1750 Local . 02 Pathologist provided ICD-10: M17.12, M65.862 . 02 CPT . 100737, [id number] Specimen Comment: A courtesy copy of this report has been sent to [phone], [phone] Specimen Comment: [id number] Specimen Comment: Report sent to / DR RAPP Specimen Comment: A duplicate report has been generated due to demographic updates. Performed at: [address], [place], [place] [id number] MD Mu Anglin MD Phone: [phone] Performed at: 02 [facility] [address], [place] [id number] MD Obinna Mac MD Phone: [phone]
--- NOTE | 2020-06-04 15:32 | NUR ---
demonstrated Hemovac dressing change to /v/u. reviewed discharge instructions, restrictions surgical site care CHIVO dressing care and restrictions to activities of daily living and medications follow up with Dr. Avilez Addendum: 06/04/20 at 1534 by ANYA HAWKINS RN dismissed to home with . script for outpatient therapy given . scripts for asa and percocet was sent to pharmacy
== END 2020-06-04 15:36 | disposition home or self-care (01) | DRG 470 ==
LOC: SURG 05:46 → 5 SOUTH 10:35 → 4 SOUTHEST 12:11 → OBSVTOIN 15:47
PROVIDERS: ADMIT Orthopaedic Surgery; ATTEND Orthopaedic Surgery
PROC: 8E0Y4CZ Robotic Assisted Procedure of Lower Extremity, Percutaneous Endoscopic Approach (ICD-10-PCS; 2020-06-02)
PROC: 0SRD0J9 Replacement of Left Knee Joint with Synthetic Substitute, Cemented, Open Approach (ICD-10-PCS; principal; 2020-06-02 07:10)
DX: M17.12 Unilateral primary osteoarthritis, left knee (principal); E11.9 Type 2 diabetes mellitus without complications; M10.9 Gout, unspecified; E78.5 Hyperlipidemia, unspecified; M11.20 Other chondrocalcinosis, unspecified site; Z83.3 Family history of diabetes mellitus; K21.9 Gastro-esophageal reflux disease without esophagitis
CPT/HCPCS: 36415; 73560; 82962; 85014; 85018; 86850; 86900; 86901; 88305; 88311; A7015; C1713; G0378; G0379; J0171; J0690; J1100; J1885; J2270; J2370; J2405; J2704; J2795; J3010; J3260; J3370; J3490; J7030; J7120; 97116-GP; 97150-GP; 97530-GP; 97535-GO; A4461; C1769; C1776

== ENCOUNTER → 2020-08-17 | Outpatient (CLI) | payer MEDICARE, OTHER ==
[~2020-08-17] MED LIST changes: +ASPI325T11 PO; +CELE100C PO; +OXYC1TAB15 PO
== END | disposition home or self-care (01) ==
LOC: LAB 13:32
PROVIDERS: ATTEND Surgery
DX: Z01.812 Encounter for preprocedural laboratory examination (principal); Z20.828 Contact with and (suspected) exposure to other viral communicable diseases; K40.90 Unilateral inguinal hernia, without obstruction or gangrene, not specified as recurrent
CPT/HCPCS: U0003-CS

== ENCOUNTER 2020-08-20 08:27 | Day surgery (SDC) | payer MEDICARE, OTHER ==
[~2020-08-20] VITALS: Ht 177.8 cm; Wt 76.0 kg
[~2020-08-20 08:27] MED LIST changes: +ACETAMINOPHEN 500 MG TABLET PO PRN; +BUPIVACAINE-EPI 0.5%-1:200000 MPF 30 ML VIAL. ONE; +HYDROmorphone 2 MG/ML VIAL IV PRN; +IV RINGERS,LACTATED 1000ML 1,000 ML IV SCH; +LIDOCAINE 1% PF 2 ML VIAL. ID PRN; +MINERAL OIL for SURGERY 10 ML VIAL. MC ONE; +MORPHINE SULFATE 2 MG/ML VIAL. IV PRN; +ONDANSETRON PF 4 MG/2 ML VIAL. IV PRN; +PROCHLORPERAZINE 10 MG/2 ML VIAL. IV PRN; +fentaNYL PF VIAL 100 MCG/2 ML VIAL IV PRN
[2020-08-20] MEDS ORDERED: ROCURONIUM 50 MG/5 ML VIAL. ONE (08:45)
[2020-08-20] MEDS ORDERED: fentaNYL PF VIAL 100 MCG/2 ML VIAL ONE (08:45)
[2020-08-20] MEDS ORDERED: LIDOCAINE 2% PF 5 ML VIAL. ONE (08:45)
[2020-08-20] MEDS ORDERED: PROPOFOL 10 MG/ML (20ML) VIAL. IV ONE (08:45)
[2020-08-20] MEDS ORDERED: DEXAMETHASONE SOD PHOS 4 MG/ML VIAL ONE (08:45)
[2020-08-20] MEDS ORDERED: ONDANSETRON PF 4 MG/2 ML VIAL. ONE (08:45)
[2020-08-20] MEDS ORDERED: BUPIVACAINE-EPI 0.5%-1:200000 MPF 30 ML VIAL. ONE (08:47)
[2020-08-20] MEDS ORDERED: MINERAL OIL for SURGERY 10 ML VIAL. MC ONE (08:47)
[2020-08-20] MEDS ORDERED: ACETAMINOPHEN 500 MG TABLET PO ONE ×2 (09:50→10:00)
[2020-08-20] MEDS ORDERED: SEVOFLURANE 61 TO 120 MINUTES. IH ONE (10:15)
[2020-08-20] MEDS ORDERED: PHENYLEPHRINE in 0.9% NACL PF 1 MG/10 ML SYRINGE. IV ONE (10:33)
[2020-08-20] MEDS ORDERED: NEOSTIGMINE METHYLSULFATE 5 MG/5 ML SYRINGE. ONE (10:40)
[2020-08-20] MEDS ORDERED: GLYCOPYRROLATE 1 MG/5 ML VIAL. ONE (10:41)
--- NOTE | 2020-08-20 10:57 | PDOC4 ---
Operative Note Operative Note Date: 08/20/2020 at 1054 Preoperative diagnosis: Left inguinal hernia Postoperative diagnosis: Same Procedure: Robotic assisted laparoscopic left inguinal hernia repair with mesh Surgeon: James Specimen: None Dictation: Patient is a 80-year-old male who has complaints of a painful bulge in his left groin consistent with a left inguinal hernia. Procedure of robotic assisted laparoscopic left inguinal hernia repair with mesh was explained to the patient detail was benefits were also discussed including bleeding infection injury to intra-abdominal contents possibly necessitating further or open operations alternatives to this procedure also discussed with the patient who seemed to understand and gave both verbal and written consent to have the procedure performed. Patient was taken to the operating room placed in the supine position general anesthesia was initiated once patient was sleeping intubated placed in low lithotomy position and his abdomen was prepped and draped usual sterile fashion using ChloraPrep. An area just above his umbilicus was injected with quarter percent Marcaine with epinephrine incision was made 11 blade scalpel and a varies needle was placed within the abdomen creating pneum operitoneum once this was complete 8 mm da Mian port was placed and the da Mian camera was placed within the abdomen which was inspected no other red maladies were noted was noted that he had a left inguinal hernia incarcerated with bowel. 8 mm da Mian port was placed in the left midabdomen and 8 mm da Mian port was placed in the right midabdomen the da Mian robot was brought into docked all port sites surgeon went to the robotic console using a grasper and Endo Hunter scissors the hernia contents were reduced the peritoneum was incised in the left groin a window was propagated inferiorly reducing the hernia sac. A large Bard 3D max left mesh was placed over the hernia defect and the peritoneum was closed with a running 2 OV lock absorbable suture. Once this complete the pneumoperitoneum was reduced the da Mian robot was undocked from all ports all ports were removed and the port sites were all closed with 4 subcuticular Monocryl Mastisol Steri-Strips and island dressings were applied. Patient was awakened and extubated in the operating room taken to recovery in stable condition all sponge instrument needle counts listed as correct estimated blood loss 5 mL SUZAN REDDY MD Aug 20, 2020 10:57
--- NOTE | 2020-08-20 10:59 | DISCH ---
DISCHARGE INSTRUCTIONS Condition on Discharge Condition on Discharge: Stable Activity After Discharge Activity Instructions for Disc: Avoid exertion, Walk in house, Other, see below Other activity instructions: No lifting more than 20 pounds for 2 weeks Diet after Discharge Diet after Discharge: Regular Wound Incision Care Other wound/incision instructi: Kaye shower in 24-hour Contacting the DRNoé after DC Call your doctor for: If your condition worsens Follow-Up Follow up with: Follow-up Dr. Reddy in 2 weeks Treatment/Equipment after DC Adaptive Equipment Issued: None SUZAN REDDY MD Aug 20, 2020 10:59
[2020-08-20] MEDS ORDERED: oxyCODONE/APAP 5/325 1 TAB TABLET PO ONE (11:45)
[2020-08-20 12:01] VITALS: BP 150/61
== END 2020-08-20 12:46 | disposition home or self-care (01) ==
LOC: SURG 08:27
PROVIDERS: ATTEND Surgery
DX: K40.90 Unilateral inguinal hernia, without obstruction or gangrene, not specified as recurrent (principal); I10 Essential (primary) hypertension; E11.9 Type 2 diabetes mellitus without complications; K21.9 Gastro-esophageal reflux disease without esophagitis; E78.5 Hyperlipidemia, unspecified; Z79.899 Other long term (current) drug therapy; Z80.0 Family history of malignant neoplasm of digestive organs
CPT/HCPCS: 49650; 82962; A7015; C1781; J0690; J1100; J2370; J2405; J2704; J2710; J3010; J3490

== ENCOUNTER → 2022-04-15 | Day surgery (SDC) | payer MEDICARE ==
[~2022-04-15] VITALS: Ht 179.1 cm; Wt 72.7 kg
[~2022-04-15] MED LIST changes: -ACETAMINOPHEN 500 MG TABLET PO PRN; -BUPIVACAINE-EPI 0.5%-1:200000 MPF 30 ML VIAL. ONE; -HYDROmorphone 2 MG/ML VIAL IV PRN; +LANS15CA73 PO; -LANS15CA78 PO; -LIDOCAINE 1% PF 2 ML VIAL. ID PRN; -MINERAL OIL for SURGERY 10 ML VIAL. MC ONE; -MORPHINE SULFATE 2 MG/ML VIAL. IV PRN; -ONDANSETRON PF 4 MG/2 ML VIAL. IV PRN; -PROCHLORPERAZINE 10 MG/2 ML VIAL. IV PRN; +PROPOFOL 10 MG/ML (20ML) VIAL. IV ONE; -fentaNYL PF VIAL 100 MCG/2 ML VIAL IV PRN; +fentaNYL PF VIAL 100 MCG/2 ML VIAL IVP PRN
[2022-04-15 08:54] VITALS: BP 155/70
--- NOTE | 2022-04-15 09:39 | PDOC2 ---
CONSULT Date of Consult Date of Consult DATE: 04/15/22 TIME: 09:36 Reason for Consult Reason for Consult: Refractory heartburn/hx hiatal hernia History of Present Illness Reason for Visit: 82 year old male is seen with above. His reflux persists despite prevacid 30 mg daily. Prior history of hiatal hernia is noted. Weight and appetite are stable. No bleeding is noted. With the conitnued issues, he requests further evaluatoin. Past Medical History Cardiovascular: Hyperlipidemia Rheumatologic: Gout Endocrine: Diabetes Past Surgical History Past Surgical History: Hernia Repair Family History Family History: Cancer Social History No ALCOHOL: none Current Medications Current Medications Current Medications Fentanyl Citrate (Fentanyl 2ml Vial) 50 mcg PRN Q5MIN PRN IVP MODERATE PAIN 4- 6; Start 04/15/22 at 06:00; Stop 04/16/22 at 05:59 Ringer's Solution 1,000 ml @ 30 mls/hr Q24H IV Last administered on 04/15/22at 09:08; Start 04/15/22 at 06:00; Stop 04/15/22 at 17:59 Propofol (Diprivan) 200 mg STK-MED ONCE IV ; Start 04/15/22 at 06:31; Stop 04/15/22 at 06:31; Status DC Active Scripts Active Aspirin Ec (Aspirin) 325 Mg Tablet.dr 325 Mg PO BID 30 Days take 325 mg enteric-coated aspirin by mouth twice a day for 30 days Celebrex (Celecoxib) 100 Mg Capsule 200 Mg PO DAILY 30 Days take 200 mg capsule by mouth daily Percocet 5-325 Mg Tablet (Oxycodone/Acetaminophen) 1 Each Tablet 1-2 Tab PO PRN Q4HRS PRN 7 Days 1-2 tabs by mouth every 4 hours as needed for pain Reported Metformin Hcl 500 Mg Tablet 500 Mg PO DAILY Citalopram Hbr (Citalopram Hydrobromide) 20 Mg Tablet 1 Tab PO BID Atorvastatin Calcium 20 Mg Tablet 1 Tab PO DAILY Allergies Allergies: Coded Allergies: No Known Drug Allergies (Unverified , 04/15/22) ROS Gastrointestinal: Yes Nausea Physical Exam General: Alert, Oriented X3 Lungs: Clear to auscultation Heart: Normal S1, Normal S2 Abdomen: Normal bowel sounds, Soft, No tenderness Vitals VITALS Vital Signs Date Time Temp Pulse Resp B/P (MAP) Pulse Ox O2 Delivery O2 Flow Rate FiO2 04/15/22 08:54 97.9 66 18 99 97.9 Assessment/Plan Assessment/Plan Heartburn-refractory ot medical therapy. EGD to further assess. R/B discussed with patient who is willing to proceed. BOBBY LANDERS MD April 15, 2022 09:39
[2022-04-15 10:15] VITALS: BP 177/63
--- NOTE | 2022-04-18 14:21 | PATHOLOGY ---
[facility] Accession Number: [id number] . 01 Material submitted: . esophagus - DISTAL ESOPHAGUS BIOPSY . 01 Clinical history: . HEARTBURN, HX HIATAL HERNIA . 02 Diagnosis: Esophageal biopsies, distal esophagus: - Reflux changes. (JPM:young; 04/18/2022) [facility] 04/18/2022 1123 Local . 02 Comment: Sections of the distal esophageal biopsy reveal segments of focally tangentially oriented hyperplastic squamous esophageal mucosa. The findings are consistent with reflux esophagitis. There is no evidence of Gottlieb's change, dysplasia or malignancy. (JPM:young; 04/18/2022) . 02 Electronically signed: . Obinna Mac MD, Pathologist NPI- [id number] . 01 Gross description: . The specimen is received in formalin, labeled "Valor Kitterman, distal esophagus biopsy". Received are multiple segments of pale zacarias tissue ranging in size from 0.3-0.4 cm in maximum dimensions. The specimen is submitted entirely in cassette A1. ([facility]; 04/15/2022) QAC/QAC 04/15/2022 1619 Local . 02 Pathologist provided ICD-10: R12 . 02 CPT . 335353 Specimen Comment: A courtesy copy of this report has been sent to [phone] Specimen Comment: Report sent to Specimen Comment: A duplicate report has been generated due to demographic updates. Performed at: 01 [facility] [address] [id number] MD Bud Sosa MD Phone: [phone] Performed at: 02 [facility] [address] [place], [place] [id number] MD Obinna Mac MD Phone: [phone]
== END | disposition home or self-care (01) ==
LOC: ENDOS 08:26
PROVIDERS: ATTEND Internal Medicine Gastroenterology
DX: K21.00 Gastro-esophageal reflux disease with esophagitis, without bleeding (principal); K44.9 Diaphragmatic hernia without obstruction or gangrene; K31.89 Other diseases of stomach and duodenum; R12 Heartburn; E11.9 Type 2 diabetes mellitus without complications; M10.9 Gout, unspecified; E78.00 Pure hypercholesterolemia, unspecified; M19.90 Unspecified osteoarthritis, unspecified site; Z79.82 Long term (current) use of aspirin; Z79.899 Other long term (current) drug therapy; Z98.890 Other specified postprocedural states; Z80.3 Family history of malignant neoplasm of breast; Z80.0 Family history of malignant neoplasm of digestive organs
CPT/HCPCS: 43239; 88305; J2704